=== PATIENT | female | born 1990 | race Caucasian/White ===

== ENCOUNTER 2018-02-07 02:35 | Emergency (ER) | payer OTHER ==
[2018-02-07 04:26] LABS: URINE BLOOD (Dip) POC 1+ (NEGATIVE); URINE GLUCOSE (Dip) POC Negative (NEGATIVE); URINE KETONES (Dip) POC Negative (NEGATIVE); URINE LEUKOCYTE EST (Dip) POC Trace (NEGATIVE); URINE NITRITE (Dip) POC Negative (NEGATIVE); URINE TOTAL PROTEIN POC Negative (NEGATIVE)
== END 2018-02-07 05:01 | disposition home or self-care (01) ==
LOC: FTE 02:35
DX: N39.0 Urinary tract infection, site not specified (principal)
CPT/HCPCS: 81003; 81025; 99283

== ENCOUNTER 2018-06-20 02:41 | Emergency (ER) | payer OTHER ==
[2018-06-20 03:18] LABS: URINE PH (Dip) POC 6.5 (5.0-8.5)
[2018-06-20 03:18] LABS: URINE BLOOD (Dip) POC 1+ (NEGATIVE); URINE GLUCOSE (Dip) POC Negative (NEGATIVE); URINE KETONES (Dip) POC Negative (NEGATIVE); URINE LEUKOCYTE EST (Dip) POC 3+ (NEGATIVE); URINE NITRITE (Dip) POC Positive (NEGATIVE); URINE TOTAL PROTEIN POC Trace (NEGATIVE)
[2018-06-20 03:33] LABS: ADD MAN DIFF? NO
[2018-06-20 03:34] LABS: BASOPHIL # 0.1 10^3/ul (0.0-0.1); BASOPHILS % 0.5 % (0.0-2.0); EOSINOPHILS # 0.6 10^3/ul (0.0-0.5); EOSINOPHILS % 5.5 % (0.0-7.0); HEMATOCRIT 40.3 % (37.0-47.0); HEMOGLOBIN 13.7 g/dl (12.0-16.0); LYMPHOCYTES # 3.4 10^3/ul (0.8-2.9); LYMPHOCYTES % 33.4 % (15.0-51.0); MEAN CORPUSCULAR HEMOGLOBIN 29.5 pg (29.0-33.0); MEAN CORPUSCULAR VOLUME 86.9 fl (82.0-101.0); MEAN PLATELET VOLUME 8.8 fl (7.4-10.4); MONOCYTE # 0.6 10^3/ul (0.3-0.9); MONOCYTES % 6.3 % (0.0-11.0); NEUTROPHIL # 5.4 10^3/ul (1.6-7.5); PLATELET COUNT 184 10^3/UL (140-415); RED BLOOD COUNT 4.64 10^6/ul (4.20-5.40)
[2018-06-20 03:43] LABS: ADD UMIC YES; UR ASCORBIC ACID NEGATIVE (NEGATIVE); UR BACTERIA FEW /HPF (NONE SEEN); UR BILIRUBIN (Dip) NEGATIVE (NEGATIVE); UR BLOOD (Dip) 1+ mg/dL (NEGATIVE); UR CLARITY SLIGHTLY CLOUDY (CLEAR); UR COLOR AMBER (YELLOW); UR GLUCOSE (Dip) NEGATIVE (NEGATIVE); UR KETONES (Dip) NEGATIVE (NEGATIVE); UR LEUKOCYTE ESTERASE (Dip) 3+ Leu/ul (NEGATIVE); UR MUCUS FEW /HPF (NONE SEEN); UR NITRITE (Dip) POSITIVE (NEGATIVE); UR RBC 10 /HPF (0-5); UR SPECIFIC GRAVITY (Dip) 1.017 (1.003-1.030); UR SQUAMOUS EPITHELIAL CELL FEW /HPF (FEW); UR TOTAL PROTEIN (Dip) NEGATIVE (NEGATIVE); UR UROBILINOGEN (Dip) 1+ mg/dL (NEGATIVE); UR WBC 33 /HPF (0-5)
== END 2018-06-20 05:18 | disposition home or self-care (01) ==
LOC: FTE 02:41
DX: O23.11 Infections of bladder in pregnancy, first trimester (principal); O26.31 Retained intrauterine contraceptive device in pregnancy, first trimester; Z3A.01 Less than 8 weeks gestation of pregnancy
CPT/HCPCS: 36415; 76801; 76817; 81001; 81003; 81025; 84702; 85025; 86900; 86901; 99284-25

== ENCOUNTER 2018-06-23 04:02 | Emergency (ER) | payer OTHER ==
[2018-06-23] MEDS: ACETAMINOPHEN 325 MG TAB PO (05:16)
[2018-06-23 05:35] LABS: ADD UMIC NO; UR ASCORBIC ACID NEGATIVE (NEGATIVE); UR BILIRUBIN (Dip) NEGATIVE (NEGATIVE); UR BLOOD (Dip) NEGATIVE (NEGATIVE); UR CLARITY CLEAR (CLEAR); UR COLOR STRAW (YELLOW); UR GLUCOSE (Dip) NEGATIVE (NEGATIVE); UR KETONES (Dip) NEGATIVE (NEGATIVE); UR LEUKOCYTE ESTERASE (Dip) NEGATIVE Leu/ul (NEGATIVE); UR NITRITE (Dip) NEGATIVE (NEGATIVE); UR SPECIFIC GRAVITY (Dip) 1.009 (1.003-1.030); UR TOTAL PROTEIN (Dip) NEGATIVE (NEGATIVE); UR UROBILINOGEN (Dip) NEGATIVE (NEGATIVE)
== END 2018-06-23 07:13 | disposition home or self-care (01) ==
LOC: FTE 04:02
DX: R79.89 Other specified abnormal findings of blood chemistry (principal)
CPT/HCPCS: 36415; 76801; 76817; 81003; 84702; 99284-25

== ENCOUNTER 2018-08-30 10:08 | Emergency (ER) | payer OTHER ==
[2018-08-30] MEDS: ACETAMINOPHEN 500 MG TAB PO (10:53)
== END 2018-08-30 11:44 | disposition home or self-care (01) ==
LOC: FTE 10:08
DX: S29.001A Unspecified injury of muscle and tendon of front wall of thorax, initial encounter (principal); S30.1XXA Contusion of abdominal wall, initial encounter; R07.9 Chest pain, unspecified; W01.198A Fall on same level from slipping, tripping and stumbling with subsequent striking against other object, initial encounter; Y92.89 Other specified places as the place of occurrence of the external cause
CPT/HCPCS: 71045; 71100; 76705; 99284-25

== ENCOUNTER 2019-05-30 00:19 | Emergency (ER) | payer OTHER ==
[2019-05-30 02:08] LABS: ADD UMIC YES; UR ASCORBIC ACID NEGATIVE (NEGATIVE); UR BACTERIA FEW /HPF (NONE SEEN); UR BILIRUBIN (Dip) NEGATIVE (NEGATIVE); UR BLOOD (Dip) 3+ mg/dL (NEGATIVE); UR CLARITY SLIGHTLY CLOUDY (CLEAR); UR COLOR YELLOW (YELLOW); UR GLUCOSE (Dip) NEGATIVE (NEGATIVE); UR KETONES (Dip) NEGATIVE (NEGATIVE); UR LEUKOCYTE ESTERASE (Dip) 2+ Leu/ul (NEGATIVE); UR MUCUS FEW /HPF (NONE SEEN); UR NITRITE (Dip) NEGATIVE (NEGATIVE); UR NONSQUAMOUS EPITHELIAL CELL 1 /HPF (NONE SEEN); UR RBC 7 /HPF (0-5); UR SPECIFIC GRAVITY (Dip) 1.008 (1.003-1.030); UR TOTAL PROTEIN (Dip) NEGATIVE (NEGATIVE); UR UROBILINOGEN (Dip) NEGATIVE (NEGATIVE); UR WBC 138 /HPF (0-5)
== END 2019-05-30 02:30 | disposition home or self-care (01) ==
LOC: FTE 00:19
DX: N30.01 Acute cystitis with hematuria (principal)
CPT/HCPCS: 81001; 81025; 87086; 99283